=== PATIENT | male | born 1975 | race African-American/Black ===

== ENCOUNTER 2020-08-01 11:35 | Emergency (ER) | payer SELFPAY ==
[~2020-08-01] VITALS: Ht 180.3 cm; Wt 63.0 kg
[2020-08-01] MEDS ORDERED: AZITHROMYCIN 500 MG TABLET PO ONE (12:00)
[2020-08-01] MEDS ORDERED: CEFTRIAXONE SODIUM 250 MG/VIAL IM ONE (12:00)
[2020-08-01 12:35] VITALS: BP 119/74
[2020-08-01 12:42] LABS: CLARITY URINE CLEAR (CLEAR); COLOR URINE YELLOW (YELLOW); KETONES URINE NEGATIVE (NEGATIVE); LEUKOCYTE ESTERASE URINE NEGATIVE (NEGATIVE); NITRITE URINE NEGATIVE (NEGATIVE); OCCULT BLOOD URINE NEGATIVE (NEGATIVE); PROTEIN URINE NEGATIVE (NEGATIVE); SPECIFIC GRAVITY URINE 1.012 (1.005-1.030)
[2020-08-03 04:11] LABS: NEISSERIA GONORRHOEAE NAA Negative (Negative)
== END 2020-08-01 12:37 | disposition home or self-care (01) ==
LOC: ER 11:35
DX: Z20.2 Contact with and (suspected) exposure to infections with a predominantly sexual mode of transmission (principal); F12.10 Cannabis abuse, uncomplicated; F17.200 Nicotine dependence, unspecified, uncomplicated
CPT/HCPCS: 81003; 87086; 87491; 87591; 96372; 99283; J0696

== ENCOUNTER 2020-10-19 07:50 | Emergency (ER) | payer MEDICAID ==
[~2020-10-19] VITALS: Ht 180.3 cm; Wt 64.0 kg
[2020-10-19 07:54] VITALS: BP 124/78
[2020-10-19] MEDS ORDERED: DOXY100C2 MT (08:23)
[2020-10-19 08:38] LABS: CLARITY URINE CLEAR (CLEAR); COLOR URINE YELLOW (YELLOW); KETONES URINE NEGATIVE (NEGATIVE); LEUKOCYTE ESTERASE URINE NEGATIVE (NEGATIVE); NITRITE URINE NEGATIVE (NEGATIVE); OCCULT BLOOD URINE NEGATIVE (NEGATIVE); PH URINE 6.5 (4.5-8.0); PROTEIN URINE NEGATIVE (NEGATIVE); UROBILINOGEN URINE 0.2 E.U./dL (0.2-1.0)
[2020-10-19] MEDS ORDERED: DOXYCYCLINE HYCLATE 100MG CAPSULE PO ONE (09:00)
[2020-10-19] MEDS ORDERED: LIDOCAINE HCL 1% 20ML VIAL (Pyxis) INJ INFIL ONE (09:00)
[2020-10-19] MEDS ORDERED: CEFTRIAXONE SODIUM 500 MG/VIAL IM ONE (09:00)
[2020-10-21 17:06] LABS: NEISSERIA GONORRHOEAE NAA Negative (Negative)
== END 2020-10-19 09:43 | disposition home or self-care (01) ==
LOC: ER 07:50
DX: Z20.2 Contact with and (suspected) exposure to infections with a predominantly sexual mode of transmission (principal); F12.90 Cannabis use, unspecified, uncomplicated
CPT/HCPCS: 81003; 87491; 87591; 96372; 99283; J0696; J3490

== ENCOUNTER 2021-04-18 08:38 | Emergency (ER) | payer SELFPAY ==
[~2021-04-18] VITALS: Ht 180.3 cm; Wt 65.0 kg
[~2021-04-18 08:38] MED LIST: DOXY100C2 MT
[2021-04-18 08:47] VITALS: BP 118/69
[2021-04-18] MEDS ORDERED: TOBR3.5O RIGHTEYE (09:11)
[2021-04-18] MEDS ORDERED: GENT5DRO5 RIGHTEYE (09:11)
== END 2021-04-18 09:30 | disposition home or self-care (01) ==
LOC: ER 08:38
DX: H10.9 Unspecified conjunctivitis (principal); H01.003 Unspecified blepharitis right eye, unspecified eyelid